=== PATIENT | male | born 1990 | race Caucasian/White ===

== ENCOUNTER 2016-08-03 16:15 | Emergency (ER) | payer MEDICAID ==
[2016-08-03 17:11] VITALS: BP 151/71
[2016-08-03] MEDS ORDERED: oxyCODONE HCL/ACETAMINOPHEN 1 TAB TABLET PO ONE (18:52)
[2016-08-03] MEDS ORDERED: KETOROLAC TROMETHAMINE 60 MG/2 ML VIAL IM ONE ×2 (18:52→18:56)
[2016-08-03] MEDS ORDERED: CLINDAMYCIN HCL 150 MG CAPSULE PO ONE (18:53)
[2016-08-03] MEDS ORDERED: oxyCODONE HCL/ACETAMINOPHEN 1 TAB TABLET ONE (18:55)
[2016-08-03] MEDS ORDERED: CLINDAMYCIN HCL 150 MG CAPSULE ONE (18:56)
--- NOTE | 2016-08-03 18:59 | ERNOTE ---
ENT HPI Date of Service: 08/03/16 Time Seen by Provider: 08/03/16 18:46 Source: patient Exam Limitations: no limitations - Immun/Allergies/Home Medications Immunizations: IMMUNIZATION HX Immunizations Up to Date Yes History of Influenza Vaccine No Hx Pneumococcal Vaccination No Allergies/Adverse Reactions: Allergies Allergy/AdvReac Type Severity Reaction Status Date / Time No Known Allergies Allergy Verified 08/03/16 17:11 Home Medications: HOME MEDICATIONS Clindamycin HCl [Cleocin HCl] 300 mg PO Q6H #40 capsule 08/03/16 [Last Taken Unknown] oxyCODONE HCL/ACETAMINOPHEN [Percocet 5 MG/325 MG] 1 tab PO Q4H PRN #20 tab [Last Taken Unknown] - History of Present Illness Narrative: Pt. comes in with c/o L maxillary pain from dental caries pt. also with R mandible pain from tooth fracture. Pt. denies any Headache, ear pain, NVD, SOB , fever, alleviating factors, but does state that eating aggravates the pain and denies any prehospital treatment. Pt. states taht he has an appointment with his dentist in a week. Review of Systems - Review of Systems Constitutional: Present: no symptoms reported EYE: Present: no symptoms reported ENT: Present: other - L maxillary pain and R mandible dental pain Respiratory: Present: no symptoms reported Cardiology: Present: no symptoms reported. Absent: chest pain, palpitations, edema Gastrointestinal/Abdominal: Present: no symptoms reported. Absent: nausea, vomiting, diarrhea Genitourinary: Present: no symptoms reported Musculoskeletal: Present: no symptoms reported. Absent: back pain, joint pain Skin: Present: no symptoms reported Neurological: Present: no symptoms reported. Absent: headache, dizziness/light- headedness, numbness, tingling All Other Systems: All systems neg except as marked - Patient's Past Medical History Patient History - Medical: No pertinent hx Patient History - Cancer: No Hx of Cancer Patient History - Surgical Procedures: No surgical history - Social History Living Situations: home Smoking Status: Current every day smoker Have you smoked in the past 12 months: Yes Alcohol Use: none Drug Use: none Physical Exam - Physical Exam General Appearance: Present: wd/wn, alert, no apparent distress Eye Exam: Normal inspection: bilateral, PERRL: bilateral, EOMI: bilateral Ears, Nose, Throat: Present: hearing grossly normal, normal pharynx, other - tooth caries at multiple teeth into pulp and tooth fracture R lower molar abscess noted above L upper incisor Respiratory: Present: no respiratory distress, normal breath sounds, no accessory muscle use, chest nontender, lungs clear Cardiovascular/Chest: Present: regular rate, rhythm, no murmur, normal peripheral pulses Back Exam: Present: normal inspection Extremity Exam: Present: normal inspection Neurological Exam: Present: alert, oriented, normal mood/affect, no motor/ sensory deficits Skin Exam: Present: normal color, warm/dry. Absent: pallor, skin rash ED Progress - Vital Signs Patient's Vital Signs:: I have reviewed the patient's vital signs. Vital Signs: Vital Signs 08/03/16 17:08 Temperature 35.9 C L Pulse Rate 74 Respiratory 16 Rate Blood Pressure 151/71 O2 Sat by Pulse 99 Oximetry - Progress/Reassessment Chief Complaint: Dental Problem Departure Clinical Impression: Dental caries, Dental abscess Broken tooth Qualifiers: Encounter type: initial encounter Fracture type: closed Qualified Code(s): S02.5XXA - Fracture of tooth (traumatic), initial encounter for closed fracture - Departure Disposition: Home self-care Condition: Good Instructions: Dental Caries, Dental Abscess, [id number], Tooth Injuries, Easy -to-Read Additional Instructions: Please follow up with dentist as planned Prescriptions: Clindamycin HCl [Cleocin HCl] 300 mg PO Q6H #40 capsule oxyCODONE HCL/ACETAMINOPHEN [Percocet 5 MG/325 MG] 1 tab PO Q4H PRN #20 tab PRN Reason: Pain
== END 2016-08-03 19:06 | disposition home or self-care (01) ==
LOC: ER 16:15
DX: K04.7 Periapical abscess without sinus (principal); S02.5XXA Fracture of tooth (traumatic), initial encounter for closed fracture; K02.9 Dental caries, unspecified; F17.210 Nicotine dependence, cigarettes, uncomplicated

== ENCOUNTER 2016-08-04 02:08 | Emergency (ER) | payer MEDICAID ==
[2016-08-04 02:44] VITALS: BP 158/98
[2016-08-04] MEDS ORDERED: oxyCODONE HCL/ACETAMINOPHEN 1 TAB TABLET ONE (02:57)
[2016-08-04] MEDS: oxyCODONE HCL/ACETAMINOPHEN 1 TAB TABLET PO ONE (02:58)
--- NOTE | 2016-08-04 03:05 | ERNOTE ---
ENT [facility] Date of Service: 08/04/16 Presenting Symptoms: dental pain Time Seen by Provider: 08/04/16 02:27 Source: patient Exam Limitations: no limitations - Immun/Allergies/Home Medications Immunizations: IMMUNIZATION HX Immunizations Up to Date Yes History of Influenza Vaccine No Hx Pneumococcal Vaccination No Allergies/Adverse Reactions: Allergies Allergy/AdvReac Type Severity Reaction Status Date / Time No Known Allergies Allergy Verified 08/03/16 17:11 Home Medications: HOME MEDICATIONS Clindamycin HCl [Cleocin HCl] 300 mg PO Q6H #40 capsule 08/03/16 [Last Taken Unknown] oxyCODONE HCL/ACETAMINOPHEN [Percocet 5 MG/325 MG] 1 tab PO Q4H PRN #20 tab [Last Taken Unknown] - History of Present Illness Narrative: Patient came back to the ER due to dental pain. Patient reported he was not able to fill his prescriptions that were given earlier. Severity: Present: moderate ENT Location: Present: dental - # 10 Prearrival Treatment: Present: over the counter meds. Absent: prescription meds , squeezing nostrils, nasal packing, flushing eys Modifying Factors - Improves: Reports: nothing Modifying Factors - Worsens: Reports: heat, cold, other - palpation Associated Symptoms - ENT: Reports: tooth pain. Denies: fever, poor fluid intake, cough, voice change, sore throat, drooling, nasal congestion/drainage, facial pain/swelling, trauma Prior Treament: Reports: recently seen - Patient was discharged with Rx that were not filled Review of Systems - Review of Systems Constitutional: Absent: fever, chills, malaise EYE: Present: no symptoms reported ENT: Present: other - Patient with dental pain. Absent: ear pain, ear discharge , pulling on ears, nose pain, nose congestion, nasal drainage, sore throat, throat swelling Respiratory: Absent: shortness of breath, cough, orthopnea Gastrointestinal/Abdominal: Present: no symptoms reported Genitourinary: Present: no symptoms reported Musculoskeletal: Present: no symptoms reported Skin: Present: no symptoms reported Neurological: Present: no symptoms reported Endocrine: Present: no symptoms reported Hematologic/Lymphatic: Present: no symptoms reported Psych: Present: no symptoms reported - Patient's Past Medical History Patient History - Medical: No pertinent hx Patient History - Cancer: No Hx of Cancer Patient History - Surgical Procedures: No surgical history - Social History Living Situations: spouse Smoking Status: Current every day smoker Have you smoked in the past 12 months: Yes Alcohol Use: none Drug Use: none Physical Exam - Physical Exam General Appearance: Present: wd/wn, alert, no apparent distress Eye Exam: Normal inspection: bilateral, PERRL: bilateral, EOMI: bilateral Ears, Nose, Throat: Present: hearing grossly normal, other - Patient with no trismus, there is pain at tooth # 10. There is evidence of decay and mild swelling. No gum swelling noticed. Absent: sinus pain/drainage, pharyngeal erythema, pharyngeal swelling, tonsillar exudate, tonsillar swelling Neck: Present: normal inspection, nontender Respiratory: Present: no respiratory distress, normal breath sounds, chest nontender, lungs clear Cardiovascular/Chest: Present: regular rate, rhythm, no murmur, normal peripheral pulses Gastrointestinal/Abdominal: Present: normal bowel sounds, nontender, nondistended, soft, no organomegaly Back Exam: Present: normal inspection, normal range of motion, no CVA tenderness , no vertebral tenderness Extremity Exam: Present: normal inspection, non-tender, no edema, normal range of motion Neurological Exam: Present: alert, oriented, normal mood/affect, no motor/ sensory deficits Skin Exam: Present: normal color, warm/dry Lymphatic Exam: Present: no adenopathy ED Progress - Vital Signs Patient's Vital Signs:: I have reviewed the patient's vital signs. Vital Signs: Vital Signs 08/04/16 02:39 Temperature 35.1 C L Pulse Rate 77 Respiratory 16 Rate Blood Pressure 158/98 O2 Sat by Pulse 98 Oximetry - Progress/Reassessment Chief Complaint: Dental Problem Progress:: Unchanged Departure Clinical Impression: Dental caries, Broken tooth - Departure Disposition: Home self-care Condition: Stable Instructions: Dental Caries, [id number], Dental Care and Dentist Visits, Dental Abscess, [id number]
== END 2016-08-04 03:08 | disposition home or self-care (01) ==
LOC: ER 02:08
DX: K02.9 Dental caries, unspecified (principal); S02.5XXA Fracture of tooth (traumatic), initial encounter for closed fracture; F17.210 Nicotine dependence, cigarettes, uncomplicated